=== PATIENT | female | born 1960 | race Caucasian/White ===

== ENCOUNTER → 2023-08-12 | Outpatient (CLI) | payer MEDICARE, MEDICAID, SELFPAY ==
--- NOTE | 2023-08-12 12:12 | NEURO_ITS ---
NCS and/or EMG Patient Report Ordering Doctor: DAVID DOBBS DATE OF SERVICE: 08/12/23 Cindy hamiltonkhushis for electrodiagnostic testing of the left upper and left lower limb. She reports intermittent numbness in the left arm and leg. She also reports difficulty with balance. Electrodiagnostic findings: Left median motor nerve demonstrates normal distal latency, amplitude with reduced conduction velocity. Left ulnar motor responses within normal limits. Left peroneal and tibial motor responses are normal. No rmal left median, left ulnar, left tibial left peroneal F?waves. Prolonged left median sensory latency at the wrist. Normal ulnar and radial sensory responses. Normal left sural and superficial peroneal responses. Needle EMG testing was performed in the left upper and left lower limb. All muscles tested showed no evidence of denervation with normal motor unit action potentials. Electrodiagnostic impression: This is abnormal study. 1. Electrodiagnostic findings demonstrate left-sided median mononeuropathy. This consistent with a mild left carpal tunnel syndrome. 2. No electrodiagnostic evidence is noted for peripheral polyneuropathy. Consider testing of the right upper and right lower limb for further evaluation as the patient does report intermittent numbness and tingling there as well. 3. No electrodiagnostic evidence is noted for lumbar or cervical radiculopathy. Multi Select Codes Neurology Neurology Interp Codes: 32018-67 Musc test done w/n test comp (interp) (2) and 30899-89 Nrv cndj test 13/> studies (interp)
== END | disposition home or self-care (01) ==
LOC: PSN 08:11
PROVIDERS: PCP Nurse Practitioner Family; Referring Provider Psychiatry & Neurology Neurology; Visit Provider Psychiatry & Neurology Neurology
DX: R20.0 Anesthesia of skin (principal)
CPT/HCPCS: 95886; 95913